=== PATIENT | male | born 1975 | race Two or more races ===

== ENCOUNTER 2020-03-26 13:21 | Emergency (ER) | payer MEDICAID ==
[~2020-03-26] VITALS: Ht 175.3 cm; Wt 81.6 kg
[2020-03-26 13:24] VITALS: BP 138/89
== END 2020-03-26 14:53 | disposition left against medical advice (07) ==
LOC: ER 13:21
DX: Z53.21 Procedure and treatment not carried out due to patient leaving prior to being seen by health care provider (principal)

== ENCOUNTER 2020-04-03 01:07 | Emergency (ER) | payer MEDICAID ==
[~2020-04-03] VITALS: Ht 182.9 cm; Wt 99.0 kg
[2020-04-03 01:54] LABS: BASOPHILS % 0.6 % (0.0-2.0); EOSINOPHILS % 6.2 % (0.0-5.0); HEMATOCRIT. 38.4 % (42.0-52.0); HEMOGLOBIN. 12.7 g/dL (14.0-18.0); LYMPHOCYTES % 25.2 % (20.0-50.0); MEAN CORPUSCULAR VOLUME 81.6 fL (80.0-94.0); MEAN PLATELET VOLUME 6.9 fl (7.4-10.4); MONOCYTES % 9.7 % (2.0-8.0); NEUTROPHILS % 58.3 % (40.0-76.0); PLATELET 330 x1000/uL (130-400); RED CELL DISTRIBUTION WIDTH 14.3 % (11.6-14.6)
[2020-04-03 02:09] LABS: CHLORIDE 106 mEq/L (98-107)
[2020-04-03 05:57] VITALS: BP 154/91
== END 2020-04-03 06:00 | disposition home or self-care (01) ==
LOC: ER 01:12
DX: R07.9 Chest pain, unspecified (principal); R20.0 Anesthesia of skin; F17.200 Nicotine dependence, unspecified, uncomplicated
CPT/HCPCS: 36415; 71045; 80053; 84484; 85025; 93971; 99285

== ENCOUNTER 2022-06-30 15:12 | Emergency (ER) | payer MEDICAID ==
[~2022-06-30] VITALS: Ht 182.9 cm; Wt 100.0 kg
[2022-06-30 15:17] VITALS: BP 159/98
== END 2022-06-30 18:46 | disposition left against medical advice (07) ==
LOC: ER 15:12
DX: Z53.21 Procedure and treatment not carried out due to patient leaving prior to being seen by health care provider (principal)

== ENCOUNTER 2022-08-07 23:49 | Emergency (ER) | payer MEDICAID | END 2022-08-08 01:06 | disposition left against medical advice (07) | LOC: ER 23:49 | DX: Z53.21 Procedure and treatment not carried out due to patient leaving prior to being seen by health care provider (principal) | CPT/HCPCS: 99281 ==

== ENCOUNTER 2023-01-22 14:56 | Emergency (ER) | payer MEDICAID ==
[~2023-01-22] VITALS: Ht 182.9 cm; Wt 94.0 kg
[2023-01-22 15:05] VITALS: O2SAT 97
[2023-01-22] MEDS ORDERED: KETOROLAC 60MG/2ML VIAL IM STA (15:21)
[2023-01-22 15:37] LABS: BASOPHILS % 0.6 % (0.0-2.0); EOSINOPHILS % 1.2 % (0.0-5.0); HEMATOCRIT. 39.3 % (42.0-52.0); LYMPHOCYTES % 13.6 % (20.0-50.0); MEAN CORPUSCULAR HEMOGLOBIN 26.7 pg (28.0-32.0); MEAN CORPUSCULAR HGB CONC 33.1 g/dL (31.0-37.0); MEAN CORPUSCULAR VOLUME 80.8 fL (80.0-94.0); MEAN PLATELET VOLUME 7.6 fl (7.4-10.4); MONOCYTES % 14.8 % (2.0-8.0); NEUTROPHILS % 69.8 % (40.0-76.0); PLATELET 275 x1000/uL (130-400); RED BLOOD CELL COUNT 4.86 mill/uL (4.7-6.1); RED CELL DISTRIBUTION WIDTH 14.3 % (11.6-14.6); WHITE BLOOD COUNT 8.9 x1000/uL (4.5-11.0)
[2023-01-22] MEDS ORDERED: MAGNESIUM/ALUMINUM HYDROXIDE/SIMETHICONE 30ML UDC PO STA (15:38)
[2023-01-22] MEDS ORDERED: FAMOTIDINE 20MG TABLET PO ONE (15:45)
[2023-01-22 15:47] LABS: CHLORIDE 103 mEq/L (98-107); INDEX HEMOLYSI 1 (1-3); INDEX ICTERIC 1 (1-4); INDEX LIPEMIC 1 (1-3); POTASSIUM 3.6 mEq/L (3.5-5.1); SODIUM 135 mEq/L (136-145)
[2023-01-22 15:55] LABS: ALANINE AMINOTRANSFERASE 49 IU/L (13-61); ALBUMIN 3.6 g/dL (3.4-5.0); ASPARTATE AMINOTRANSFERASE 74 IU/L (15-37); BILIRUBIN TOTAL 0.9 mg/dL (0.1-1.0); CARBON DIOXIDE 25 mEq/L (21-32); CREATININE 0.7 mg/dL (0.6-1.3); GLUCOSE 126 mg/dL (70-105); PROTEIN TOTAL 7.2 g/dL (6.0-8.3); UREA NITROGEN BLOOD 10 mg/dL (7-21)
[2023-01-22] MEDS ORDERED: ONDANSETRON 4MG ODT PO ONE (17:00)
[2023-01-22] MEDS ORDERED: ONDA4TAB11 PO (17:33)
[2023-01-22] MEDS ORDERED: FAMO-135 MT (17:33)
[2023-01-22 17:49] VITALS: BP 145/78; PULSE 80; RESP 18; TEMP 98.8
== END 2023-01-22 17:55 | disposition home or self-care (01) ==
LOC: ER 14:56
DX: R10.9 Unspecified abdominal pain (principal); R11.2 Nausea with vomiting, unspecified
CPT/HCPCS: 99285; 74176; 80053; 83690; 85025; 36415; 96372; Q0162; J1885

== ENCOUNTER 2023-04-04 15:26 | Emergency (ER) | payer MEDICAID ==
[~2023-04-04] VITALS: Ht 182.9 cm; Wt 95.3 kg
[~2023-04-04 15:26] MED LIST: FAMO-135 MT; ONDA4TAB11 PO
[2023-04-04 15:54] VITALS: O2SAT 98
[2023-04-04] MEDS ORDERED: KETOROLAC 60MG/2ML VIAL IM ONE (20:00)
[2023-04-04 21:24] VITALS: BP 153/101
[2023-04-04] MEDS ORDERED: IBUP-2030 MT (22:03)
[2023-04-04] MEDS ORDERED: CYCL5TAB MT (22:03)
[2023-04-04 22:17] VITALS: PULSE 75; RESP 16; TEMP 98.2
== END 2023-04-04 22:17 | disposition home or self-care (01) ==
LOC: ER 15:26
DX: S90.31XA Contusion of right foot, initial encounter (principal); S43.401A Unspecified sprain of right shoulder joint, initial encounter; S13.9XXA Sprain of joints and ligaments of unspecified parts of neck, initial encounter; V49.9XXA Car occupant (driver) (passenger) injured in unspecified traffic accident, initial encounter; Y93.89 Activity, other specified; Y92.89 Other specified places as the place of occurrence of the external cause; Y99.8 Other external cause status
CPT/HCPCS: 73630; 99283; Z7610; J1885

== ENCOUNTER 2023-11-08 15:44 | Emergency (ER) | payer OTHER, MEDICAID ==
[~2023-11-08] VITALS: Ht 170.2 cm; Wt 80.0 kg
[~2023-11-08 15:44] MED LIST changes: +CYCL5TAB MT; +IBUP-2030 MT
[2023-11-08 15:48] VITALS: O2SAT 99
[2023-11-08] MEDS: IBUPROFEN 400MG TABLET PO ONE (16:15)
[2023-11-08] MEDS: ACETAMINOPHEN 325MG TABLET PO ONE (16:15)
[2023-11-08] MEDS ORDERED: IBUP-2028 MT (16:37)
[2023-11-08] MEDS ORDERED: TOPUD PO (16:37)
[2023-11-08 17:23] VITALS: BP 125/87; PULSE 81; RESP 18; TEMP 98.6
== END 2023-11-08 17:31 ==
LOC: ER 15:44
DX: S62.91XA Unspecified fracture of right hand, initial encounter for closed fracture (principal); Z87.891 Personal history of nicotine dependence; Z79.899 Other long term (current) drug therapy; X58.XXXA Exposure to other specified factors, initial encounter; Y93.89 Activity, other specified; Y92.89 Other specified places as the place of occurrence of the external cause; Y99.8 Other external cause status
CPT/HCPCS: 29125; 73130; 99283